=== PATIENT | male | born 1960 | race Caucasian/White ===

== ENCOUNTER → 2020-05-10 | Outpatient (CLI) | payer SELFPAY ==
--- NOTE | 2020-05-10 | IMM_PTH ---
PATIENT: FREYA LIRIANO LOC: [facility] U#:[id number] AGE/SX: 59/M ROOM: RE05/10/[address]: Dr. Jj Guzman MD : 1960 BED: DIS: 05/10/2020 SPEC #: [id number] RECD: 05/14/20 13:56 STATUS: FELIPE REQ #: [id number] ROHAN: 05/10/20 00:[address]: Jj Guzman DEPT: IMMUNOHISTOCHEMISTRY RECD BY: Татьяна Martinez ENTERED: 05/14/20 13:58 SP TYPE: IMMUNO OTHR DR: No Primary Care Phys Tissues: Esophagus, NOS Procedures: MSH2 (add) MLH-1 (add) MSH6 (add) Anti-PMS2 (add) CK20 (add) CK7 (add) CK8 (add) BARBER-2 (add) KI-67 (add) P53 (add) Pankeratin (initial) CDX2 (add) PHYSICIAN & [address] [address] SPECIMEN INFORMATION: Tissue Source: Esophageal biopsy Clinical Info: Anemia, weight loss Specimen Number: [id number] CPT code: 18932, 91215 x11 METHODOLOGY: Deparaffinized sections of prefer/formalin-fixed tissue or PAP/DQ stained slides are incubated with monoclonal/polyclonal antibodies/oligonucleotide probes. Localization is made via biotin free immunoperoxidase method. Appropriate controls are performed and reacted as expected. Results on target cell population are indicated in the following table: RESULTS: ANTIBODY / CLONE RESULT AE1-3 (AE1/AE3/PCK26) positive CK7 (OV-TL12/30) negative CK8 (44urejB17) positive CK20 (KS20.8) positive, focal BARBER-2 (SP21) positive CDX2 (RXG3168Y) positive Ki-67 (30-9) positive, 90% P53 (DO-7) positive, 45% MLH-1 (M1) positive MSH2 (25D12) positive MSH6 (44) positive PMS2 (YAV7372) positive These tests were developed and their performance characteristics determined by [facility]. They may not have been cleared or approved by the U.S. Food and Drug Administration. The FDA has determined that such clearance or approval is not necessary. The above immunohistochemical/dualISH markers are ordered and reviewed by the Pathologist. INTERPRETATION: Esophageal biopsy: Invasive poorly differentiated adenocarcinoma. Result of Microsatellite Instability Study: Negative (no loss of mismatch protein; no microsatellite instability detected). AM:ema 05/15/20
--- NOTE | 2020-05-10 13:03 | EGD_PTH ---
PATIENT: FREYA LIRIANO LOC: [facility] U#:[id number] AGE/SX: 59/M ROOM: RE05/10/[address]: Dr. Jj Guzman MD : 1960 BED: DIS: 05/10/2020 SPEC #: [id number] RECD: 05/10/20 15:13 STATUS: FELIPE ISRAEL #: [id number] ROHAN: 05/10/20 13:[address]: Jj Guzman DEPT: SURGICAL PATHOLOGY RECD BY: Maria Teresa Nelson ENTERED: 05/13/20 07:23 SP TYPE: EGD BIOPSY OT DR: Linda [facility] Tissues: Esophageal mucous membrane Procedures: Special Stain Group II Special Stain Group I Surgery Specimen Level IV GMS Stain (control) Alcian Blue/PAS (control) HEADER OPERATION: EGD with biopsies PRE-OP DIAGNOSIS: Anemia, weight loss TISSUE SUBMITTED: Esophageal biopsies, rule out esophageal CA MICROSCOPIC DIAGNOSIS Esophagus, biopsy: Invasive moderate to poorly differentiated adenocarcinoma. Focal mucosal ulceration. Fungal organisms present. See comment. AM:ema 05/14/20 COMMENT Immunohistochemistry ([id number]) supports the above diagnosis. GMS and AB/PAS stains with matched control was used in the evaluation of this case. MICROSCOPIC DESCRIPTION Slides are reviewed. GROSS DESCRIPTION Received in fixative is one container labeled with the patient's name and designated esophageal biopsy. The specimen consists of multiple irregular fragments of light shetty soft tissue that in aggregate measure 1 x 0.6 x 0.2 cm. The specimen is totally submitted in one cassette. / AM:ema 05/13/20 TC:0 CPT: 80111, 74355, 49851
== END | disposition home or self-care (01) ==
LOC: LABSPEC 15:44
PROVIDERS: Referring Provider Internal Medicine Gastroenterology; Visit Provider Internal Medicine Gastroenterology
DX: D50.0 Iron deficiency anemia secondary to blood loss (chronic) (principal); R63.4 Abnormal weight loss
CPT/HCPCS: 88305; 88312; 88313; 88341; 88342

== ENCOUNTER 2024-03-24 07:34 | Observation (INO) | payer SELFPAY ==
[2024-03-21 14:52] LABS: Hemoglobin 8.4 g/dL (13.0-16.5); Mean Corpuscular Hgb 20.9 pg (27.0-32.0); Mean Corpuscular Volume 74.8 fL (80-94); Mean Platelet Vol. 10.9 fl (6.2-12.0); Platelet Count 340 K/mm3 (150-450); RBC Distribution Width CV 18.8 % (11.6-14.6); RBC Distribution Width SD 51.3 fl (35.1-43.9); Red Blood Count 4.01 M/mm3 (4.6-6.2); White Blood Count 6.8 K/mm3 (4.4-11.0)
[2024-03-21 15:31] LABS: Hemoglobin A1c 7.5 % (3.8-5.6)
[2024-03-21 15:35] LABS: Anion Gap 3 (5-15); BUN 13 mg/dL (7-18); BUN/Creat Ratio 12.1 RATIO (10-20); Chloride 107 mmol/L (98-107); Creatinine, Serum 1.07 mg/dL (0.70-1.30); EST Glomerular Filtration Rate 74 mL/min (>60); Est Glom Filt Rate - Afr Amer 90 mL/min (>60); Glucose 142 mg/dL (74-106); Potassium 3.9 mmol/L (3.5-5.1); Sodium Level 139 mmol/L (136-145)
[2024-03-21 17:32] LABS: International Normalized Ratio 1.6; Prothrombin Time (Protime)PT. 18.6 SECONDS (11.7-14.9)
[2024-03-24] VITALS (12 sets, daily range): BP systolic 115–140; BP diastolic 75–89; PULSE 66–92; RESP 16–18; TEMP 36.2–36.7; O2SAT 92–100; BMI 23.3; BMI 3417.4
[2024-03-24] MEDS: Lactated Ringers 1,000 ML 15 ML IV (06:01)
--- NOTE | 2024-03-24 07:11 | PRE.ANES_ITS ---
ASA Classification* ASA Classification ASA Classification: 3 Assessment & Plan Anesthesia* Anesthesia Assessment Anesthesia Assessment: Discussed sedation and/or anesthesia options, risks, benefits, and alternatives with patient/parents/legal guardian/POA. Questions invited. The patient/parents/legal guardian/POA seems to understand and agrees to proceed with anesthesia plan. Reviewed the physical assessment, medical history, allergy history and patient home medications list prior to surgery/procedure/anesthetic and documented any changes. Performed airway and anesthesia risk assessments. Anesthesia Type Anesthesia Type: General Anesthesia Focused Assessment* Temperature: 97.4 F Pulse Rate: 79 Blood Pressure: 115/79 Respiratory Rate: 16 Pulse Ox: 100 Airway Assessment Mouth opens: >3 cm Mallampati Score: II Focused Labs Anesthesia Preop lab: CBC WBC 6.8 K/mm3 (4.4-11.0) 03/21/24 14:07 RBC 4.01 M/mm3 (4.6-6.2) L 03/21/24 14:07 Hgb 8.4 g/dL (13.0-16.5) L 03/21/24 14:07 Hct 30.0 % (40-54) L 03/21/24 14:07 Plt Count 340 K/mm3 (150-450) 03/21/24 14:07 CHEMISTRY Potassium 3.9 mmol/L (3.5-5.1) 03/21/24 14:07 Sodium 139 mmol/L (136-145) 03/21/24 14:07 BUN 13 mg/dL (7-18) 03/21/24 14:07 Creatinine 1.07 mg/dL (0.70-1.30) 03/21/24 14:07 Glucose 142 mg/dL (74-106) H 03/21/24 14:07 COAG PT 18.6 SECONDS (11.7-14.9) H 03/21/24 14:07 Pre-Assessment Diagnosis/Proposed Procedure Planned Operative Procedure(s): Lap Robotic Simple Prostatectomy Anesthesia History Anesthesia History - social work instructor: Anesthesia History - social work instructor Hx Hospitalization No 03/20/24 11:33 Any Problems With Anesthesia No 03/20/24 11:33 Cholinesterase deficiency No 03/20/24 11:33 You/Your Family Experience No 03/20/24 11:33 fever (hyperthermia) with Relationship Recent Exposure to Contagious No 03/24/24 05:57 Disease Does patient have nerve No 03/20/24 11:33 stimulator Patient instructed to have device shut off --Does patient have Pacemaker No 03/24/24 05:57 or ICD? When Was Last Pacemaker Check QUESTION #4 FULL TEXT: You/Your Family Experience fever (hyperthermia) with Anesthesia Last Oral Intake Last Oral intake: Last Oral Intake NPO since 20:00 03/24/24 05:57 Meds taken in AM with sips of water? Meds patient instructed to take am of surgery PONV PONV - social work instructor: PONV - social work instructor Female No 03/20/24 11:33 HX of Motion Sickness No 03/20/24 11:33 HX of N/V After Surgery No 03/20/24 11:33 Non-Smoker Yes 03/20/24 11:33 Duration of Surgery greater Yes 03/20/24 11:33 than 60 minutes Number of Risk Factors 2 03/20/24 11:33 PONV Score Moderate Risk 03/20/24 11:33 Height & Weight Height & Weight: Anesthesia: Height & Weight Height 6 ft 03/24/24 05:57 Weight: 78.3 kg 03/24/24 05:57 Body Mass Index (BMI) 23.3 03/24/24 05:57 Respiratory Assessment Respiratory Assessment - social work instructor: Respiratory Tract Infection Hx - social work instructor Hx Respiratory Tract Infection No 03/20/24 11:33 STOP Sleep Apnea STOP Sleep Apnea - social work instructor: STOP Sleep Apnea - social work instructor Hx Hypertension No 03/20/24 11:33 Hx Sleep Apnea No 03/20/24 11:33 CPAP BIPAP Do you snore loudly (louder No 03/20/24 11:33 than talking or can be heard Do you often feel tired/ No 03/20/24 11:33 fatigued/ sleepy during daytime? Has anyone observed you stop No 03/20/24 11:33 breathing during sleep? STOP Results Negative 03/20/24 11:33 QUESTION #5 FULL TEXT : Do you snore loudly (louder than talking or can be heard through closed doors)? 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 Specify any problems Hx of Preganancy in last 3 N/A 03/20/24 11:33 Months Nurse Filling Out Transfusion VLEHMAN 03/20/24 11:33 & Questions: Date: 03/20/24 03/20/24 11:33 Time: 11:44 03/20/24 11:33 Patient unable to answer at this time (ie. confused, unrespo /Reproduction History /Reproductive History - social work instructor: /Reproductive Hx- social work instructor Hx Now Gestational Age (in weeks): EDC: Hx Hx Para Hx Section SAB Active Medications Active Medications: Current Medications Generic Name Dose Route Start Last Admin Trade Name Freq PRN Reason Stop Dose Admin Cefazolin Sodium 2 gm/ Sodium 110 mls @ 150 mls/hr 03/24/24 07:30 Chloride IV 03/24/24 08:13 PREOP ONE Lactated Ringer's 1,000 mls @ 15 mls/hr 03/24/24 05:45 03/24/24 06:01 IV 15 mls/hr .Q48H JOHN Administration PFSH Medical History Wears glasses Cancer Anemia History of diverticulitis Non-smoker History of stress test History of esophageal cancer Home Medications ?Medication ?Instructions ?Recorded ?Last Taken ?Type metformin 500 mg tablet 1,000 mg PO QPM 03/20/24 03/23/24 History pantoprazole 40 mg tablet,delayed 40 mg PO BID 03/20/24 03/23/24 History release pembrolizumab 25 mg/mL intravenous IV .Q6W IMMUNOTHERAPY 03/20/24 03/15/24 History solution (Keytruda) tamsulosin 0.4 mg capsule 0.4 mg PO DAILY 03/20/24 03/23/24 History Allergy/AdvReac Type Severity Reaction Status Date / Time No Known Allergies Allergy Verified 03/24/24 05:53 Surgical History History of laparoscopic cholecystectomy History of tonsillectomy History of esophageal surgery Social History Smoking Status: Never smoker Review of Systems (Anesthesia) ROS Narrative System reviewed and no additional complaints, except as documented.
[2024-03-24 07:27] LABS: Bedside Glucose 94 mg/dL (74-106)
[2024-03-24] MEDS: Cefazolin 2 GM in 0.9% Normal Saline (100mL Bag) 100 ML IV (07:30)
--- NOTE | 2024-03-24 07:30 | PROST_PTH ---
PATIENT: FREYA LIRIANO LOC: [facility] U#:[id number] AGE/SX: 63/M ROOM: MI318 RE03/24/[address]: Dr. Ildefonso Tejada MD : 1960 BED: 1 DIS: 03/26/2024 SPEC #: [id number] RECD: 03/24/24 10:55 STATUS: FELIPE WOOD #: [id number] ROHAN: 03/24/24 07:[address]: Ildefonso Tejada DEPT: SURGICAL PATHOLOGY RECD BY: Carolina Vargas ENTERED: 03/24/24 13:20 SP TYPE: PROSTATE OTHR DR: Dr. Frank Valderrama MD Tissues: Prostate, NOS Procedures: Surgery Specimen Level HEADER OPERATION: Laparoscopic robotic simple prostatectomy PRE-OP DIAGNOSIS: Benign prostatic hyperplasia with lower urinary tract symptoms, urine retention TISSUE SUBMITTED: Prostate MICROSCOPIC DIAGNOSIS Prostate, simple prostatectomy: Bening prostatic hyperplasia, glandular and stromal type. Chronic inflammation. SJ/mr 03/27/2024 MICROSCOPIC DESCRIPTION Slides are reviewed. GROSS DESCRIPTION Received in fixative is one container labeled with the patient's name and designated Prostate. The specimen consists of a simple prostatectomy specimen weighing 66.0 gm and measuring 6.0 x 4.5 x 4.0cm. The specimen is inked, serially sectioned and do not reveal any obvious mass lesions. Soil Expert sections are submitted in ten cassettes. 03/24/2024 TC:5 CPT: 03952
--- NOTE | 2024-03-24 07:35 | HP.PCM_ITS ---
[facility] - General General Date of Service: 03/24/24 Chief Complaint: Retention of urine [facility] Narrative FREYA LIRIANO, is a 63 M who presents for a robotic simple prostatectomy as a history of very large prostate by ultrasound measured about 80 g and he has retention of urine he said several voiding trials with failed success is been on medical therapy. Offered him options and recommended a robotic simple prostatectomy and is able to proceed with a robotic simple test ectomy to alleviate the obstruction and hopefully restore normal voiding. [facility], [facility] Medical History Wears glasses Cancer Anemia History of diverticulitis Non-smoker History of stress test History of esophageal cancer Home Medications ?Medication ?Instructions ?Recorded ?Last Taken ?Type metformin 500 mg tablet 1,000 mg PO QPM 03/20/24 03/23/24 History pantoprazole 40 mg tablet,delayed 40 mg PO BID 03/20/24 03/23/24 History release pembrolizumab 25 mg/mL intravenous IV .Q6W IMMUNOTHERAPY 03/20/24 03/15/24 History solution (Keytruda) tamsulosin 0.4 mg capsule 0.4 mg PO DAILY 03/20/24 03/23/24 History ciprofloxacin HCl 500 mg tablet 500 mg PO BID #14 tabs 03/24/24 Unknown Rx (Cipro) oxycodone 5 mg tablet 5 mg PO Q6H PRN pain 3 days #14 03/24/24 Unknown Rx tabs Allergy/AdvReac Type Severity Reaction Status Date / Time No Known Allergies Allergy Verified 03/24/24 05:53 Surgical History History of laparoscopic cholecystectomy History of tonsillectomy History of esophageal surgery Social History Smoking Status: Never smoker Vital Signs Vital Signs Vital Signs: 03/24/24 05:57 03/24/24 05:57 03/24/24 07:11 Temperature 97.4 F L 97.4 F L Temperature Source Temporal Pulse Rate 79 79 Respiratory Rate 16 16 Respiratory Pattern Normal Blood Pressure 115/79 115/79 Blood Pressure Mean 91 Blood Pressure Source Monitor Blood Pressure Position Semi-Fowlers Blood Pressure Location Right Arm Pulse Ox 100 100 Oxygen Delivery Method Room Air Weight Weight: 78.3 kg Body Mass Index (BMI) 23.3 Results Lab / Micro Data 03/21/24 14:07 03/21/24 14:07 Labs: Laboratory Results - last 24 hr 03/24/24 05:56: POC Glucose 94
--- NOTE | 2024-03-24 07:35 | PCM.DC ---
Discharge Instructions Diet Discharge Diet: No restrictions Activity Discharge Activity: Return to Normal Activity and May Not Drive (while taking narcotic pain medications.) Dressing / Incision Call your doctor if you observe: Fever of 101 or Higher Catheter: Perez to leg bag and Perez to large bag Drain: [place] Follow Up Care Please Follow Up With: Ildefonso Tejada MD When: Call [phone] for an appointment Test Results: Test results from this visit will be discussed in further detail at your follow-up appointment, if applicable. Discharge Plan Admission Primary Reason for Your Visit: Simple prostatectomy robotic Attending Provider: Ildefonso Tejada Primary Care Provider: Frank Valderrama Instructions Patient Instructions: TURP Home Recovery Print Language: Somali Discharge Orders/Prescriptions Prescriptions: New ciprofloxacin HCl [Cipro] 500 mg tablet 500 mg PO BID Qty: 14 0RF oxycodone 5 mg tablet 5 mg PO Q6H PRN (Reason: pain) 3 Days Qty: 14 0RF Continued metformin 500 mg tablet 1,000 mg PO QPM tamsulosin 0.4 mg capsule 0.4 mg PO DAILY pantoprazole 40 mg tablet,delayed release (DR/EC) 40 mg PO BID Keytruda 25 mg/mL solution IV .Q6W Patient Comments: UNSURE OF DOSE Referrals / Follow Up: Ildefonso Tejada MD [Med Staff - Active Staff] - Care Physician,No Primary [Non-Staff] - Disposition Disposition (needs filled in before D/C Order can be placed): Home, Self Care
[2024-03-24] MEDS: Bupivacaine Mpf 0.5% 30 ML VIAL (09:35)
--- NOTE | 2024-03-24 09:37 | OP.PCM_ITS ---
Report of Operation Date of Procedure: 03/24/24 Pre-Operative Diagnosis: BPH with obstruction retention of urine Post-Operative Diagnosis: The same Surgery/Procedure Performed:: Laparoscopic robotic assisted simple prostatectomy Description of Surgical Findings:: 63-year-old male with very large prostate plan to proceed with a simple prostatectomy robotically. He was taken back to the operating room after smooth induction of anesthesia he was placed in dorsolithotomy position. The penis and testicles were prepped and draped in usual sterile fashion and also the lower abdomen we inspected the lower abdomen he had several port sites and also an incision site from her prior esophageal surgery and was also done robotically in the past. So once the patient was prepped and draped I decided to make an incision below the umbilicus to approach the prostate somewhat subumbilical. Placed a Veress needle into the peritoneal cavity and filled the peritoneal cavity with CO2 gas I then looked inside the abdomen and there was adhesions of small bowel up into into the anterior abdominal wall but this was posterior to me and did not have a block to the site viewed to the bladder and prostate so I left these adhesions alone I then safely placed right arm trocar left arm trocar and an air seal port there was some some adhesions next to the air seal port these were taken down so there was a free access to the stylist assistant surgeon. We then docked the da Syed robot we using an X I robot and we used a 0 degree lens. Once the robot was docked then we placed the scissors in my right arm and ProGrasp in the my left arm for stated reflected the colon off the lateral sidewall incising the white line of Toldt on the sigmoid colon this was able to then to dissected out of the way so that a lot of free access to the pelvis and the bladder was then filled with about 200 cc of normal saline and then a incision was made in the midline of the bladder. I then opened up the bladder in the midline and got inside the bladder we sucked out the urine and fluid from the bladder I then extended the incision so that we could retract the bladder edges with the suction port and the robotic ProGrasp we then approached the prostate I scored the prostate circumferentially around the urethra to score the mucosa of the prostate to save his mucosa lateral to flap down to the urethra for reconstruction I then found the enucleation plane between the adenoma and the prostate edge found this first posteriorly and then once we went got underneath the adenoma dissected underneath the adenoma as far as inferiorly as possible all the way down to the apex of the prostate I then started working my way up on the right side and the adenoma tracing the adenoma and peeling the adenoma off the capsule the prostate the way there was a nice pseudocapsule around this large adenoma about an 80 g adenoma as I followed this to the anterior part then we came to the muscle fibers of the anterior part of the adenoma adhesions between the adenoma in the anterior part and then we went to the back down to the posterior part of the adenoma and worked our way to the lateral side again dissecting bluntly and sharply to reflect the adenoma off the lateral wall of the prostate capsule away working away all the way anterior we then we came through the adenoma anteriorly and then started pulling the end of the adenoma towards us we are using suction to able to visualize and as we came towards the apex I left the catheter in place so that we could follow the catheter and then we identified the urethral strip the anterior part of the urethral strip was then opened up and then it continued to dissect the adenoma off the urethral strip and then I was able to dissect the adenoma off the apex of the prostate then the adenoma came free and it was pulled and free we deflated the balloon and pulled out the catheter from the adenoma and the complete adenoma left and right was removed completely from the prostate. We then inspected the prostate base and there was no major bleeding we cauterize any sites that look like they could bleed. We irrigate out the bladder and irrigate the base of the pelvis. I then proceeded with reconstruction of the bladder neck to the urethra we used a 3 oh V-Loc stitch in a continuous fashion running from the 6:00 to the 12:00 advancing the mucosa all the way around to the urethral stump circumferentially after this was completed then there was a nice reapproximation of the mucosa to the urethral stump and advancing the urethra to complete the reapproximation of the bladder mucosa to the new urethral stump. Then at this point we inspected and there was no bleeding from the area 20 Vietnamese catheter was put into the urethra with 10 cc of water in the balloon we then proceeded with closure of the bladder close the first layer with a 2 oh V-Loc stitch and closed the second layer with an 0 Vicryl stitch these were tied together then we tested the anastomosis and closure filled the bladder up with 200 cc of sterile saline and there was no leakage. We then the using Endo Catch bag to place the adenoma inside the bag and then we undocked the robot the lower umbilical port was opened up and we extracted the large adenoma through that low remove the local port and then we closed the fascia with 0 Vicryl suture 2 [id number] sutures were used to close this. We then reinsufflated the abdomen and inspected the abdomen there was no sign of injury to any bowel intestines there was still the adhesions of the anterior small bowel to the anterior part of the abdomen but this is left alone as this is the way it was found and I felt like dissecting this down could be extremely dangerous for bowel injury given how it adhesions anterior small bowel was to the anterior wall of the abdomen. We then closed the [address] port with Vicryl suture 0 Vicryl this was done under direct visualization and then this port was removed and then we remove the 2 of the ports desufflated the abdomen. We then closed all the incisions with subcuticular stitches there was a 1 incision in the lower left abdomen midline incision lower below the umbilicus a incision in the right lower quadrant and then the air seal port that was in the right upper quadrant after all 4 incisions were closed with subcuticular stitches and 4-0 Monocryl then we placed Steri-Strips. I then irrigated the bladder copiously to make sure there is no clots and it was draining well. The anesthetic was reversed the patient was extubated he was taken off the table and transferred to the PACU in safe condition. Surgeon: Ildefonso Tejada Type of Anesthesia: General Drains: 20 Fr Admit VTE Documentation VTE Present on Admission: No VTE Mechan Device Prophylaxis: SCD's VTE Pharm Prophylaxis ordered?: No
--- NOTE | 2024-03-24 10:33 | SUR.PHASEI ---
1000 20 FR CATHETER IRRIGATED USING 30 ML STERILE WATER AND 50ML SYRINGE. 1 BLOOD CLOT REMOVED.
--- NOTE | 2024-03-24 10:38 | PCM.POST.ANE ---
Anesthesia: Postop Eval I Current Vital Signs Temperature: 97.3 F Pulse Rate: 92 Blood Pressure: 140/89 Respiratory Rate: 16 Pulse Ox: 94 Oxygen Delivery Method: Room Air Assessment Airway patent: Yes Spontaneous unlabored respirations: Yes Mental status: Awake and Calm nausea: No Vomiting: No Anesthesia Complication: No Fluid Hydration Crystalloid volume administer (ml): 1,200 Total IV fluid infused: 1,200 Progress Note Anesthesia document: Postop Eval 1 completed: Yes
[2024-03-24] MEDS: 0.9% Normal Saline (1000mL) 1,000 ML 150 ML IV ×3 (11:15→22:08)
[2024-03-24] MEDS: Ketorolac 15 MG/ML Vial IV (11:22)
[2024-03-24] MEDS: Morphine 2 MG/ML Syringe IV (11:22)
[2024-03-24] MEDS: Acetaminophen 325 MG Tablet PO (11:23)
--- NOTE | 2024-03-24 12:47 | POSTOPAN2_ITS ---
Anesthesia Postop Eval I Sum Postop Eval Completion status Anesthesia document: Postop Eval 1 completed: Yes Anesthesia Postop Eval I Summary Anesthesia Postop Eval I Summary: Anesthesia Postop Eval I: Assessment Summary Airway patent Yes 03/24/24 10:39 [email or web address] Spontaneous unlabored Yes 03/24/24 10:39 [email or web address] respirations Mental status Awake,Calm 03/24/24 10:39 [email or web address] nausea No 03/24/24 10:39 [email or web address] Vomiting No 03/24/24 10:39 [email or web address] Anesthesia Postop Eval I: Fluid Summary Crystalloid volume administer 1,200 03/24/24 10:39 [email or web address] (ml) Colloids volume administered ( ml) Blood Product volume administered (ml) Total IV fluid infused 1,200 03/24/24 10:39 [email or web address] Anesthesia Postop Eval I: Summary Notes Anesthesia Complication No 03/24/24 10:39 [email or web address] Anesthesia Complication Comment: Post-operative progress note Anesthesia: Postop Eval II Evaluation Mental status: Awake Pain Level: 0 nausea: No Vomiting: No
--- NOTE | 2024-03-24 12:47 | PCM.POSTANE2 ---
Anesthesia Postop Eval I Sum Postop Eval Completion status Anesthesia document: Postop Eval 1 completed: Yes Anesthesia Postop Eval I Summary Anesthesia Postop Eval I Summary: Anesthesia Postop Eval I: Assessment Summary Airway patent Yes 03/24/24 10:39 [email or web address].[email or web address] Spontaneous unlabored Yes 03/24/24 10:39 [employer].MDOT respirations Mental status Awake,Calm 03/24/24 10:39 [employer].MDOT nausea No 03/24/24 10:39 [employer].MDOT Vomiting No 03/24/24 10:39 [email or web address].MDOT Anesthesia Postop Eval I: Fluid Summary Crystalloid volume administer 1,200 03/24/24 10:39 [employer].MDOT (ml) Colloids volume administered ( ml) Blood Product volume administered (ml) Total IV fluid infused 1,200 03/24/24 10:39 [email or web address].MDOT Anesthesia Postop Eval I: Summary Notes Anesthesia Complication No 03/24/24 10:39 [email or web address].MDOT Anesthesia Complication Comment: Post-operative progress note Anesthesia: Postop Eval II Evaluation Mental status: Awake Pain Level: 0 nausea: No Vomiting: No
[2024-03-24] MEDS: oxyCODONE 5 MG Tablet PO ×2 (15:38→22:09)
[2024-03-24] MEDS: Cefazolin 1 GM/50 ML BAG IV ×2 (15:39→22:08)
[2024-03-24] MEDS: metFORMIN HCl 1,000 MG Tablet 1000 MG PO (15:39)
[2024-03-24] MEDS: Tamsulosin HCl 0.4 MG Capsule PO (15:40)
[2024-03-24] MEDS: Pantoprazole Sodium 40 MG Tablet PO (15:40)
[2024-03-24] MEDS: Docusate Sodium 100 MG Capsule 200 MG PO (22:09)
[2024-03-25 03:10] VITALS: BP 108/71; PULSE 86; RESP 16; TEMP 36.6; O2SAT 96
[2024-03-25] MEDS: 0.9% Normal Saline (1000mL) 1,000 ML 150 ML IV (05:11)
--- NOTE | 2024-03-25 07:44 | PCM.PN.GU ---
Subjective Subjective s/p simple prostatectomy urine still slighly blooding but clear heplock out of bed, ambulate maybe home tomorrow sol to leg bag Objective Data Objective Data Vital Signs: Vital Signs Temp Pulse Resp BP Pulse Ox O2 Del Method 98 F 86 16 108/71 96 Room Air 03/25/24 03:10 03/25/24 03:10 03/25/24 03:10 03/25/24 03:10 03/25/24 03:10 03/25/24 03:10 Oxygen Delivery Method Room Air Weight: 79.379 kg Body Mass Index (BMI) 3417.4 Intake & Output: Intake and Output for Last 24 Hours 03/23/24 03/24/24 03/25/24 23:59 23:59 23:59 Intake Total 2115.75 / 2115.75 965 / 965 Output Total 350 / 350 Balance 1765.75 / 1765.75 965 / 965 Lab / Micro Data 03/21/24 14:07 03/21/24 14:07
[2024-03-25 08:08] VITALS: BP 110/71; PULSE 82; RESP 16; TEMP 36.8; O2SAT 95
[2024-03-25] MEDS: Docusate Sodium 100 MG Capsule 200 MG PO ×2 (08:30→22:15)
[2024-03-25] MEDS: oxyCODONE 5 MG Tablet PO ×2 (08:31→16:08)
[2024-03-25] MEDS: Pantoprazole Sodium 40 MG Tablet PO ×2 (08:31→22:15)
[2024-03-25 11:03] VITALS: O2SAT 95
[2024-03-25] MEDS: Ketorolac 15 MG/ML Vial IV ×2 (11:32→19:09)
[2024-03-25 14:22] VITALS: BP 90/53; PULSE 87; RESP 16; TEMP 36.7; O2SAT 98
[2024-03-25 16:03] VITALS: BP 101/65; PULSE 77; RESP 16; TEMP 36.8; O2SAT 97
[2024-03-25] MEDS: metFORMIN HCl 1,000 MG Tablet 1000 MG PO (16:09)
[2024-03-25] MEDS: Tamsulosin HCl 0.4 MG Capsule PO (16:10)
[2024-03-25 20:30] VITALS: BP 121/71; PULSE 91; RESP 16; TEMP 37.3; O2SAT 98
[2024-03-26] MEDS: Ketorolac 15 MG/ML Vial IV ×3 (00:33→11:26)
[2024-03-26 02:58] VITALS: BP 115/74; PULSE 96; RESP 16; TEMP 36.9; O2SAT 97
[2024-03-26 08:56] VITALS: BP 121/81; PULSE 76; RESP 18; TEMP 36.9; O2SAT 97
[2024-03-26] MEDS: Docusate Sodium 100 MG Capsule 200 MG PO (09:01)
[2024-03-26] MEDS: Pantoprazole Sodium 40 MG Tablet PO (09:02)
--- NOTE | 2024-03-26 09:54 | PCM.PN.GU ---
Subjective Subjective 63 yo male s/p simple prostatectomy home today with sol to leg bag. Objective Data Objective Data Vital Signs: Vital Signs Temp Pulse Resp BP Pulse Ox O2 Del Method 98.5 F 76 18 121/81 H 97 Room Air 03/26/24 08:56 03/26/24 08:56 03/26/24 08:56 03/26/24 08:56 03/26/24 08:56 03/26/24 08:56 Oxygen Delivery Method Room Air Weight: 79.379 kg Body Mass Index (BMI) 3417.4 Intake & Output: Intake and Output for Last 24 Hours 03/24/24 03/25/24 03/26/24 23:59 23:59 23:59 Intake Total 2115.75 / 2115.75 2279.5 / 2279.5 400 / 400 Output Total 350 / 350 250 / 250 780 / 780 Balance 1765.75 / 1765.75 2029.5 / 2029.5 -380 / -380 Lab / Micro Data 03/21/24 14:07 03/21/24 14:07
[2024-03-26 11:29] VITALS: O2SAT 97
[2024-03-26] MEDS: 0.9 % NaCl (Sterile) Posiflush 10 mL IV (11:29)
== END 2024-03-26 12:11 | disposition home or self-care (01) ==
LOC: SDC 09:17 → MS3 09:17
PROVIDERS: Anesthesiology; Admitting Provider Urology; PCP Family Medicine; Referring Provider Urology; Visit Provider Urology
PROC: 0VT04ZZ Resection of Prostate, Percutaneous Endoscopic Approach (ICD-10-PCS; CPT 55867; principal; 2024-03-24 07:10)
DX: N40.1 Benign prostatic hyperplasia with lower urinary tract symptoms (principal); E11.9 Type 2 diabetes mellitus without complications; N13.8 Other obstructive and reflux uropathy; R33.8 Other retention of urine; I45.10 Unspecified right bundle-branch block; I10 Essential (primary) hypertension; Z79.899 Other long term (current) drug therapy; Z85.01 Personal history of malignant neoplasm of esophagus; Z87.19 Personal history of other diseases of the digestive system
CPT/HCPCS: 55867; 00840; 36415; 80048; 82962; 83036; 85027; 85610; 85730; 88309; 93005; 94668; 96361; 96365; 96366; 96372; 96375; 96376; 99221; J7030; J7120; G0378; J2405

== ENCOUNTER 2024-06-20 11:06 | Inpatient (IN) | payer OTHER, SELFPAY ==
[2024-06-20] VITALS (8 sets, daily range): BP systolic 131–157; BP diastolic 75–96; PULSE 67–83; RESP 14–18; TEMP 36.6–36.7; O2SAT 97–99; BMI 24.3; BMI 22.6
--- NOTE | 2024-06-20 11:26 | CT_ITS ---
HISTORY: Kidney Stone. TECHNIQUE: Helically acquired images were obtained of the abdomen and pelvis without oral or IV contrast. A radiation dose optimization technique was used for this scan. 399 images. COMPARISON: None. FINDINGS: LOWER CHEST: Moderate right pleural effusion. Mild loculated left pleural effusion with mild pleural thickening. Bilateral lower lobe opacity calcified granulomas also noted. Mild pericardial effusion with pericardial thickening. BOWEL: Distal esophageal wall thickening and mild hiatal hernia with adjacent suture. Bowel including appendix nondilated. Colonic diverticulosis without focal pericolonic inflammatory change. PERITONEUM: Mild perihepatic ascites. No mesenteric edema. LIVER SPLEEN: Calcified granulomas. GALLBLADDER/BILIARY TREE: Surgical clips in the gallbladder fossa. PANCREAS: Atrophic. ADRENAL GLANDS: 1.9 cm indeterminate left adrenal nodule. KIDNEYS AND URETERS: Mild left hydronephrosis and hydroureter down to the level of 6 mm and 2 mm ureterovesical junction calculi. 7 mm calculus just distal to the left ureterovesical junction also seen. One-2 mm right renal Silva without hydronephrosis. VESSELS: No abdominal aortic aneurysm. Mild atherosclerosis. PELVIC ORGANS: 1 mm left bladder calculus ABDOMINAL WALL: Mild subcutaneous edema. BONES: Degenerative change scattered small bone islands. CT/Abdomen/Pelvis without Cont IMPRESSION: Mild left hydronephrosis secondary to 6 mm, 2 mm, and 7 mm UVJ calculi. Small left bladder calculus. Small nonobstructing right renal calculi. Anasarca with moderate right pleural effusion, loculated mild left pleural effusion, and loculated mild pericardial effusion; infection not excluded. Mild ascites. Gastroesophageal postoperative change with mild wall thickening of the distal esophagus and mild hiatal hernia. Colonic diverticulosis without acute diverticulitis. 1.9 cm left adrenal nodule. ACR White Paper guidelines (Jaycob et al. JACR 2017; 14(8):0067-0889) suggest the following. If there is no history of malignancy consider a follow-up low dose, non-contrast adrenal CT or chemical-shift adrenal MRI in 12 months. If there is a history of malignancy recommend a low dose, non-emergent, non-contrast adrenal CT or chemical-shift adrenal MRI follow-up study. Electronically Signed: Charu Luke MD at 12:44 EST ,
--- NOTE | 2024-06-20 11:28 | EX.ED.DYSGE1 ---
HPI History of Present Illness Chief Complaint: Flank Pain Informant: patient Narrative Narrative: Nontraumatic left flank pain started this morning. No radicular symptoms. No fever or chills. Over the weekend, reported slight urine discomfort at the end of urination. No nausea or vomiting. History of kidney stones in the past with no intervention he is followed by urologist Dr. Tejada. Also history of esophageal cancer immunotherapy every 6 weeks last treatment 2 weeks ago. He took a leftover oxycodone 8 AM with no relief. Denies history gastric ulcers or kidney injury. Prior similar symptoms: Yes PFSH [facility] Medical History (Updated 06/20/24 @ 15:[address] Parviz Baptiste DO) Diabetes Chronic pain Kidney stones GERD (gastroesophageal reflux disease) Wears glasses Cancer Anemia History of diverticulitis Non-smoker History of stress test History of esophageal cancer Home Medications ?Medication ?Instructions ?Recorded ?Last Taken ?Type metformin 500 mg tablet 1,000 mg PO QPM 03/20/24 06/19/24 History pantoprazole 40 mg tablet,delayed 40 mg PO BID 03/20/24 06/19/24 History release pembrolizumab 25 mg/mL intravenous IV .Q6W IMMUNOTHERAPY 03/20/24 06/09/24 History solution (Keytruda) tamsulosin 0.4 mg capsule 0.4 mg PO DAILY 03/20/24 06/19/24 History ferrous sulfate 325 mg (65 mg 325 mg PO DAILY 06/20/24 06/19/24 History iron) tablet iron dextran 50 mg/mL injection 50 mg IM .1x 06/20/24 06/16/24 History solution (Infed) Allergy/AdvReac Type Severity Reaction Status Date / Time No Known Allergies Allergy Verified 06/20/24 11:07 Surgical History History of laparoscopic cholecystectomy History of tonsillectomy History of esophageal surgery Social History Smoking Status: Never smoker ROS ROS ED Constitutional Constitutional ED: Denies chills, fever(s) or sweats Eyes Eyes: Denies change in vision ENT ENT ED: Denies dysphagia or sore throat Cardiovascular Cardiovascular: Denies chest pain, leg edema, palpitations or racing heartbeat Respiratory/Chest Respiratory/Chest: Denies cough, dyspnea or dyspnea on exertion Gastrointestinal Gastrointestinal: Denies abdominal pain, diarrhea, nausea or vomiting Genitourinary Genitourinary ED: Denies dysuria, hematuria or urinary frequency Musculoskeletal Musculoskeletal: Reports back pain; Denies extremity pain or neck pain Integumentary Denies rash or wounds Neurologic Neurologic: Denies headache(s), paresthesias or weakness EXAM Physical Exam Const Vital Signs: 06/20/24 11:06 06/20/24 13:05 06/20/24 13:42 Temperature 97.8 F 98.1 F Temperature Source Oral Pulse Rate 67 83 79 Respiratory Rate 16 14 16 Blood Pressure 157/96 H 144/87 H 147/83 H Blood Pressure Mean 116 106 104 Pulse Ox 98 98 97 Oxygen Delivery Method Room Air Positive well nourished and well developed General Appearance ED: well developed and NAD HEENT Reports moist mucous membranes normocephalic and atraumatic Eyes EOMs intact bilaterally and conjunctivae normal General Eye ED: Yes normal appearance of both eyes Neck no lymphadenopathy and supple General: Negative for tenderness Chest Wall Chest: Negative for tenderness Resp normal respiratory effort and normal air movement Effort and Inspection: symmetric chest movement; Negative for respiratory distress Cardio regular rate, regular rhythm and no murmurs Peripheral Pulses: pulses 2+ throughout GI normal to inspection, nondistended, normoactive bowel sounds and non-tender Palpation: Negative for guarding or rebound tenderness present Back/Spine no CVA tenderness and no thoracic nor lumbar tenderness Back/Spine Narrative: No rash or ecchymosis. Extremity normal to inspection General Extremety ED: Negative for edema or tenderness General Extremity: Negative for edema Neuro oriented x3 and no sensory deficits noted Sensorium / Orientation: awake and alert Skin no rashes or lesions noted and no wounds MDM MDM MDM Narrative Medical decision making narrative: Interventions / MDM: Differential diagnosis: Obstructive kidney stone, UTI, renal colic, history of esophageal cancer, immunotherapy Diagnosis considered but do not suspect: No sepsis criteria My EKG interpretation: N/A Imaging independently reviewed and interpreted by myself: CT abdomen pelvis: Discharge ureteral stone UVJ of 6 mm, 7 mm, 2 mm with moderate hydro-. Right pleural effusion. Also read by radiology. External documents reviewed: N/A Test considered but not ordered:N/A ED course: Left flank pain similar to kidney stones in the past. Nontoxic. IV established medications ordered, labs urine and CT scan for further evaluation. 1225: Symptoms are controlled at this time. Creatinine 0.91. White count 7.1. Urine does note signs of infection with leukocytes esterase and 10-25 WBCs. He has 2+ bacteria. Urine culture sent. He started on Rocephin. CT scan pending final read however notes left-sided hydro nephrosis with a distal ureteral stone. Hemoglobin 8.2 stable from his previous lab. 1330: CT scan read multiple stones distal left ureter at UVJ of 7 mm, 6 mm, 2 mm. Also notes right pleural effusion. He is not in any respiratory distress or hypoxic. He reports thoracentesis 2 years ago. Likely secondary to his history of esophageal cancer. I spoke with his urologist Dr. Tejada, he would like to keep him n.p.o., with his medical history request admission to medicine, he will plan to place a stent tomorrow. I will page hospitalist for discussion. Discussed with hospitalist Dr. Elaine for admission. Re-evaluation: stable Disposition discussed with patient/family/significant other: Patient Case discussed with consulting clinician: Urology, hospitalist This note was generated with [employer] dictation software. It may contain incorrect words, spelling, and punctuation that were not noted in checking the note before signing. Lab Data Attestation: I reviewed the patient's lab results. Labs: Laboratory Results - last 24 hr 06/20/24 06/20/24 11:14 11:50 WBC 7.1 RBC 3.76 L Hgb 8.2 L Hct 28.2 L MCV 75.0 L MCH 21.8 L MCHC 29.1 L RDW Std Deviation 54.4 H RDW Coeff of Domonique 21.6 H Plt Count 254 MPV 10.9 Immature Gran % (Auto) 1.300 H Neut % (Auto) 77.1 H Lymph % (Auto) 9.3 L [place] % (Auto) 8.6 Eos % (Auto) 3.1 Baso % (Auto) 0.6 Absolute Neuts (auto) 5.5 Absolute Lymphs (auto) 0.66 L Nucleated RBC % 0 Differential Comment SCANNED Platelet Estimate ADEQUATE Polychromasia 1+ Hypochromasia 2+ Anisocytosis 3+ Macrocytosis 1+ Tear Drop Cells 1+ Ovalocytes 2+ Acanthocytes (Spur) 1+ Sodium 142 Potassium 3.3 L Chloride 110 H Carbon Dioxide 26.0 Anion Gap 6 BUN 9 Creatinine 0.91 Estim Creat Clear Calc 91.20 Est GFR (MDRD) Af Amer 108 Est GFR (MDRD) Non-Af 89 BUN/Creatinine Ratio 9.8 L Glucose 148 H Calcium 8.6 Phosphorus 3.2 Magnesium 1.8 Urine Color Yellow Urine Clarity Clear Urine pH 6.0 Ur Specific [place] 1.020 Urine Protein 100 H Urine Glucose (UA) Normal Urine Ketones Negative Urine Occult Blood 25 H Urine Nitrite Negative Urine Bilirubin Negative Urine Urobilinogen Normal Ur Leukocyte Esterase 25 H Urine RBC 5-10 SEEN Urine WBC 10-25 SEEN Ur Squamous Epith Cells 0-5 SEEN Ur Transition Epith Cell 0-5 SEEN Urine Bacteria 2+ Urine Mucus 1+ Radiography Diagnostic Testing: Clinical Impression(s) from Imaging Studies Abdomen/Pelvis CT 06/20/24 11:26 IMPRESSION: Mild left hydronephrosis secondary to 6 mm, 2 mm, and 7 mm UVJ calculi. Small left bladder calculus. Small nonobstructing right renal calculi. Anasarca with moderate right pleural effusion, loculated mild left pleural effusion, and loculated mild pericardial effusion; infection not excluded. Mild ascites. Gastroesophageal postoperative change with mild wall thickening of the distal esophagus and mild hiatal hernia. Colonic diverticulosis without acute diverticulitis. 1.9 cm left adrenal nodule. ACR White Paper guidelines (storm Devries al. JACR 2017; 14(8):1175-4668) suggest the following. If there is no history of malignancy consider a follow-up low dose, non-contrast adrenal CT or chemical-shift adrenal MRI in 12 months. If there is a history of malignancy recommend a low dose, non-emergent, non-contrast adrenal CT or chemical-shift adrenal MRI follow-up study. Electronically Signed: Charu Luke MD at 12:44 EST , Discharge Plan Dx/Rx/DC Orders Clinical Impression: Urolithiasis, Acute UTI, Pleural effusion, right, History of esophageal cancer, History of immunotherapy, Anemia Disposition Disposition: [facility]
[2024-06-20] MEDS: Ondansetron 4 MG/2 ML Vial IV (11:42)
[2024-06-20] MEDS: Ketorolac 15 MG/ML Vial IV (11:42)
[2024-06-20 11:43] LABS: Color, Urine Yellow (Yellow); Glucose, Dipstick Normal (Normal); Ketone-Dipstick Negative (Negative); Leukocyte Esterase-Dipstick 25 /ul (Negative); Nitrite-Dipstick Negative (Negative); Occult Blood-Urine 25 /ul (Negative); Protein-Dipstick 100 mg/dl (Negative); Urine Bilirubin Dipstick Negative (Negative); Urine Clarity Clear (Clear); Urine Urobilinogen Normal (Normal)
[2024-06-20] MEDS: Morphine 4 MG/ML Syringe IV (11:43)
[2024-06-20 11:50] LABS: Squamous Epithelial Cells - UA 0-5 SEEN /hpf (0-5); White Blood Cells 10-25 SEEN /hpf (0-5)
[2024-06-20 11:51] LABS: Bacteria 2+ /hpf (None Seen); Mucous, Urine 1+ /hpf (<or=2+); Red Blood Cells-Urine 5-10 SEEN /hpf (0-5); Transitional Epithelial - Ur 0-5 SEEN /hpf (0-5)
[2024-06-20 11:54] LABS: Absolute Lymphocyte Count 0.66 X10^3/uL (0.83-4.51); Absolute Neutrophil Count 5.5 X10^3/uL (2.0-7.7); Basophil# 0.04 X10^3/uL; Basophil% 0.6 % (0-1); Eosinophil# 0.22 X10^3/uL; Eosinophils% 3.1 % (0-5); Hematocrit 28.2 % (40-54); Hemoglobin 8.2 g/dL (13.0-16.5); Lymphocyte # 0.66 X10^3/ul (0.83-4.51); Lymphocyte % 9.3 % (19-41); Mean Corp Hgb Conc 29.1 g/dL (32-36); Mean Corpuscular Hgb 21.8 pg (27.0-32.0); Mean Platelet Vol. 10.9 fl (6.2-12.0); Monocyte# 0.61 X10^3/uL; Monocyte% 8.6 % (0-10); NRBC Flagged by Analyzer 0 % (0-5); Neutrophil # 5.49 X10^3/uL (2.7-7.7); Neutrophil % 77.1 % (47-70); POSITIVE MORPHOLOGY YES; Platelet Count 254 K/mm3 (150-450); RBC Distribution Width CV 21.6 % (11.6-14.6); RBC Distribution Width SD 54.4 fl (35.1-43.9); Red Blood Count 3.76 M/mm3 (4.6-6.2); White Blood Count 7.1 K/mm3 (4.4-11.0)
[2024-06-20 12:01] LABS: Differential Indicated SCAN CRITERIA MET
[2024-06-20 12:07] LABS: Anion Gap 6 (5-15); BUN 9 mg/dL (7-18); BUN/Creat Ratio 9.8 RATIO (10-20); Calcium,Total 8.6 mg/dL (8.5-10.1); Chloride 110 mmol/L (98-107); Creatinine, Serum 0.91 mg/dL (0.70-1.30); EST Glomerular Filtration Rate 89 mL/min (>60); Est Glom Filt Rate - Afr Amer 108 mL/min (>60); Glucose 148 mg/dL (74-106); Potassium 3.3 mmol/L (3.5-5.1); Sodium Level 142 mmol/L (136-145)
[2024-06-20] MEDS: Ceftriaxone 1 GM/50 ML BAG IV (12:31)
[2024-06-20 12:57] LABS: Differential Comment SCANNED
[2024-06-20 12:58] LABS: Acanthocytes 1+; Anisocytosis 3+; Hypochromasia 2+; Macrocytosis 1+; Ovalocyte 2+; Platelet Estimate ADEQUATE (ADEQ); Polychromasia 1+
[2024-06-20 12:59] LABS: Tear Drop Cell 1+
--- NOTE | 2024-06-20 13:57 | HP.PCM.HOS_ITS ---
HPI - General General Date of Admission: 06/20/24 Date of Service: 06/20/24 Chief Complaint: Left-sided flank pain HPI Narrative FREYA LIRIANO, is a 64 M who presented to [facility] ED on 06/20/2024 with left-sided flank pain. CT abdomen pelvis showed mild left hydronephrosis secondary to 2, 6, and 7 mm UVJ calculi. Case was discussed with Dr. Tejada in the ED who recommended admission to medicine with plan for procedure tomorrow. Hospitalist was then contacted for admission. I saw the patient at bedside in the ED. Patient follows with Dr. Tejada. He had a simple prostatectomy done by Dr. Tejada here on 03/24/24 for BPH with outlet obstruction. Patient has had a history of small kidney stones that passed on their own, has never required any procedure for them. Patient began to have pain with urination starting 2 days ago and then developed left-sided lower abdominal and flank pain starting this morning. He was given doses of IV Toradol, morphine and Zofran with good relief of symptoms. When I saw him, he was sitting up comfortably in bed, conversing normally, in no acute distress. He denied any issues at this time. Will be admitted for further management. Importantly, patient's history is significant for esophageal cancer and he follows with [facility] for this. I unfortunately was not able to find a good summary of his care through [facility] and did place a request for records. Cancer history was obtained from patient today. Patient states he was diagnosed with cancer back in 2019. States the cancer was right at the GE junction. He completed chemotherapy and radiation initially. He then underwent a surgical procedure to remove that area of the esophagus back in 2020. He has now been on Keytruda every 6 weeks for the past few years. He is aware of his left adrenal nodule that is concerning for cancer metastases and this is being followed by his oncologist. He has had pleural effusions in the past that required thoracentesis. On admission today patient is hemodynamically stable on room air. His CT abdomen pelvis did show anasarca with moderate right pleural effusion, loculated mild left pleural effusion, loculated mild pericardial effusion and mild ascites. Patient denies any shortness of breath with exertion. Denies any abdominal bloating or distention. Notably he can eat a regular diet. States that he eats normal foods but eats only small amounts of food at a time due to his previous surgery. [facility] Medical History Wears glasses Cancer Anemia History of diverticulitis Non-smoker History of stress test History of esophageal cancer Home Medications ?Medication ?Instructions ?Recorded ?Last Taken ?Type metformin 500 mg tablet 1,000 mg PO QPM 03/20/24 06/19/24 History pantoprazole 40 mg tablet,delayed 40 mg PO BID 03/20/24 06/19/24 History release pembrolizumab 25 mg/mL intravenous IV .Q6W IMMUNOTHERAPY 03/20/24 06/09/24 History solution (Keytruda) tamsulosin 0.4 mg capsule 0.4 mg PO DAILY 03/20/24 06/19/24 History ferrous sulfate 325 mg (65 mg 325 mg PO DAILY 06/20/24 06/19/24 History iron) tablet iron dextran 50 mg/mL injection 50 mg IM .1x 06/20/24 06/16/24 History solution (Infed) Allergy/AdvReac Type Severity Reaction Status Date / Time No Known Allergies Allergy Verified 06/20/24 11:07 Surgical History History of laparoscopic cholecystectomy History of tonsillectomy History of esophageal surgery Social History Smoking Status: Never smoker ROS Constitutional Constitutional: Denies chills, fatigue, fever(s) or weakness Cardiovascular Cardiovascular: Denies chest pain Respiratory/Chest Respiratory/Chest: Denies shortness of breath at rest Gastrointestinal Gastrointestinal: Reports abdominal pain and nausea; Denies constipation, diarrhea or vomiting Genitourinary Genitourinary: Reports dysuria and other Details: Positive for left-sided flank pain. ; Denies burning urination, difficulty urinating, urinary frequency or urinary urgency Musculoskeletal Musculoskeletal: Reports myalgias; Denies arthralgias Vital Signs Vital Signs Vital Signs: 06/20/24 11:06 06/20/24 13:05 06/20/24 13:42 Temperature 97.8 F 98.1 F Temperature Source Oral Pulse Rate 67 83 79 Respiratory Rate 16 14 16 Blood Pressure 157/96 H 144/87 H 147/83 H Blood Pressure Mean 116 106 104 Pulse Ox 98 98 97 Oxygen Delivery Method Room Air Weight Weight: 81.448 kg Body Mass Index (BMI) 24.3 Physical Exam Const alert, oriented x3, no apparent distress, average body habitus, healthy appearing and well nourished Constitutional Narrative: Pleasant middle-age male, sitting up comfortably in bed, conversing normally, in no acute distress. General Appearance: cooperative, comfortable, well kempt and well developed HEENT normocephalic, head/scalp atraumatic, hearing grossly normal bilaterally, nasal mucous membranes and turbinates normal and moist oral mucous membranes Eyes PERRL, EOMs intact bilaterally and conjunctivae normal Neck full ROM Chest inspection of chest normal Resp normal respiratory effort, normal air movement, no use of accessory muscles and clear to auscultation bilaterally Cardio regular rate, regular rhythm, no murmurs and peripheral pulses 2+ throughout GI normal to inspection, nondistended, normoactive bowel sounds, soft to palpation, non-tender and non-distended Narrative: Mild left-sided CVA tenderness. Bladder / Kidney Exam: bladder normal to palpation Back/Spine normal ROM Extremity normal to inspection, full ROM and no pedal edema Skin no rashes or lesions noted Psych mental status grossly normal Results Lab / Micro Data 06/20/24 11:50 06/20/24 11:50 Labs: Laboratory Results - last 24 hr 06/20/24 11:14: Urine Color Yellow, Urine Clarity Clear, Urine pH 6.0, Ur Specific [place] 1.020, Urine Protein 100 H, Urine Glucose (UA) Normal, Urine Ketones Negative, Urine Occult Blood 25 H, Urine Nitrite Negative, Urine Bilirubin Negative, Urine Urobilinogen Normal, Ur Leukocyte Esterase 25 H, Urine RBC 5-10 SEEN, Urine WBC 10-25 SEEN, Ur Squamous Epith Cells 0-5 SEEN, Ur Transition Epith Cell 0-5 SEEN, Urine Bacteria 2+, Urine Mucus 1+ 06/20/24 11:50: WBC 7.1, RBC 3.76 L, Hgb 8.2 L, Hct 28.2 L, MCV 75.0 L, MCH 21.8 L, MCHC 29.1 L, RDW Std Deviation 54.4 H, RDW Coeff of Domonique 21.6 H, Plt Count 254, MPV 10.9, Immature Gran % (Auto) 1.300 H, Neut % (Auto) 77.1 H, Lymph % (Auto) 9.3 L, [place] % (Auto) 8.6, Eos % (Auto) 3.1, Baso % (Auto) 0.6, Absolute Neuts (auto) 5.5, Absolute Lymphs (auto) 0.66 L, Nucleated RBC % 0, Differential Comment SCANNED, Platelet Estimate ADEQUATE, Polychromasia 1+, Hypochromasia 2+, Anisocytosis 3+, Macrocytosis 1+, Tear Drop Cells 1+, Ovalocytes 2+, Acanthocytes (Spur) 1+, Sodium 142, Potassium 3.3 L, Chloride 110 H, Carbon Dioxide 26.0, Anion Gap 6, BUN 9, Creatinine 0.91, Estim Creat Clear Calc 91.20, Est GFR (MDRD) Af Amer 108, Est GFR (MDRD) Non-Af 89, BUN/Creatinine Ratio 9.8 L , Glucose 148 H, Calcium 8.6 Imaging Radiology Impression Abdomen/Pelvis CT 06/20/24 11:26 IMPRESSION: Mild left hydronephrosis secondary to 6 mm, 2 mm, and 7 mm UVJ calculi. Small left bladder calculus. Small nonobstructing right renal calculi. Anasarca with moderate right pleural effusion, loculated mild left pleural effusion, and loculated mild pericardial effusion; infection not excluded. Mild ascites. Gastroesophageal postoperative change with mild wall thickening of the distal esophagus and mild hiatal hernia. Colonic diverticulosis without acute diverticulitis. 1.9 cm left adrenal nodule. ACR White Paper guidelines (Jaycob et al. JACR 2017; 14(8):7348-5115) suggest the following. If there is no history of malignancy consider a follow-up low dose, non-contrast adrenal CT or chemical-shift adrenal MRI in 12 months. If there is a history of malignancy recommend a low dose, non-emergent, non-contrast adrenal CT or chemical-shift adrenal MRI follow-up study. Electronically Signed: Charu Luke MD at 12:44 EST , Assessment & Plan Assessment/Plan (1) Left nephrolithiasis: (2) Acute UTI: PLAN: Plan Patient is a 64-year-old male who presented [facility] ED on 06/20/2024 with left-sided flank pain. 1. Left-sided nephrolithiasis with mild hydronephrosis and UTI ? Admit under inpatient status to [facility]. Urology consulted. CT abdomen pelvis showed mild left hydronephrosis secondary to 2, 6, and 7 mm UVJ calculi. UA showed 25 occult blood, 25 leukocyte esterase, negative nitrites, 2+ bacteria. N.p.o. at midnight with plan for urology procedure tomorrow. Will treat with IV ceftriaxone for now, urine culture pending. Hemodynamically stable and afebrile with normal WBC count, no concern for sepsis. Pain control with Tylenol, IV Toradol, p.o. oxycodone and IV Dilaudid all as needed; notably is on p.o. PPI twice daily as noted below, no overt contraindication for IV Toradol. 2. History of esophageal cancer s/p surgical resection and chemoradiation therapy now on immunotherapy; anasarca with bilateral pleural effusions and mild pericardial effusion ? Follows with [facility] oncology. See HPI for further details regarding his cancer history. Patient is currently doing well, has been maintained on Keytruda immunotherapy every 6 weeks for the past few years. Is able to eat a regular diet without issue. CT abdomen pelvis on admit did show anasarca with moderate right pleural effusion, mild left pleural effusion, loculated mild pericardial effusion and mild ascites. Patient is stable on room air and denies any shortness of breath with ambulation. No inpatient oncology needs, continue close outpatient follow-up. Continue home p.o. PPI twice daily. 3. History of BPH with obstructive symptoms s/p simple prostatectomy ? Follows with Dr. Tejada. Had simple prostatectomy done on 03/24/2024. Tolerated procedure well, no intraoperative or postoperative complications. Continue home Flomax. 4. Mild hypokalemia ? Potassium 3.3 on admit. Mag and Phos ordered. Follow-up a.m. BMP. Replete potassium as needed. 5. Chronic iron deficiency anemia ? Hemoglobin 8.2, MCV 75 on admit. Patient is at baseline. Follow-up a.m. CBC to ensure stability. Continue home iron supplement. 6. Type 2 diabetes mellitus ? On metformin 1000 mg at night. Last A1c 7.5% in March. Blood glucose 148 on admit. Will treat with sliding scale insulin with meals while inpatient. DVT prophylaxis: SCDs CODE STATUS: Full code, verified Expected disposition: Home, 2 to 3 days Total clinical time spent by myself addressing the patient's medical issues, reviewing all the data, and collaborating with patient's care team: 75 minutes. Charges/Coding Visit Charges Inpatient E&M: 12108 Init Hosp L3
[2024-06-20 14:22] LABS: Magnesium 1.8 mg/dL (1.6-2.6); Phosphorus 3.2 mg/dL (2.5-4.9)
--- NOTE | 2024-06-20 15:01 | PCM.CONS.U ---
Assessment & Plan Assessment/Plan (1) Left nephrolithiasis: HPI Consult Data Date of Consult: 06/20/24 HPI Narrative Reason for Consultation: Left ureteral calculi HPI Narrative: FREYA LIRIANO, is a 64 M who presents To the hospital multiple medical problems has obstructing stones in the distal left ureter patient will be admitted for pain control plan to take this patient the surgery tomorrow for left ureteroscopy and left stent placement. [facility] Medical History Wears glasses Cancer Anemia History of diverticulitis Non-smoker History of stress test History of esophageal cancer Home Medications ?Medication ?Instructions ?Recorded ?Last Taken ?Type metformin 500 mg tablet 1,000 mg PO QPM 03/20/24 06/19/24 History pantoprazole 40 mg tablet,delayed 40 mg PO BID 03/20/24 06/19/24 History release pembrolizumab 25 mg/mL intravenous IV .Q6W IMMUNOTHERAPY 03/20/24 06/09/24 History solution (Keytruda) tamsulosin 0.4 mg capsule 0.4 mg PO DAILY 03/20/24 06/19/24 History ferrous sulfate 325 mg (65 mg 325 mg PO DAILY 06/20/24 06/19/24 History iron) tablet iron dextran 50 mg/mL injection 50 mg IM .1x 06/20/24 06/16/24 History solution (Infed) Allergy/AdvReac Type Severity Reaction Status Date / Time No Known Allergies Allergy Verified 06/20/24 11:07 Surgical History History of laparoscopic cholecystectomy History of tonsillectomy History of esophageal surgery Social History Smoking Status: Never smoker Physical Exam Const alert and oriented x3 General Appearance: cooperative HEENT normocephalic and head/scalp atraumatic Eyes PERRL and EOMs intact bilaterally Neck supple, no JVD and no carotid bruits Resp normal respiratory effort, normal air movement and clear to auscultation bilaterally Cardio regular rate and no murmurs GI normal to inspection, nondistended, normoactive bowel sounds and soft to palpation Extremity normal capillary refill General Extremity: no tenderness to palpation of joints or extremities; Negative for edema Skin no rashes or lesions noted and no wounds General Skin Exam: no breakdown Neuro CN's II-XII intact bilaterally Psych affect normal Appearance: appropriate Lab / Micro Data 06/20/24 11:50 06/20/24 11:50 Labs: Laboratory Results - last 24 hr 06/20/24 11:14: Urine Color Yellow, Urine Clarity Clear, Urine pH 6.0, Ur Specific [place] 1.020, Urine Protein 100 H, Urine Glucose (UA) Normal, Urine Ketones Negative, Urine Occult Blood 25 H, Urine Nitrite Negative, Urine Bilirubin Negative, Urine Urobilinogen Normal, Ur Leukocyte Esterase 25 H, Urine RBC 5-10 SEEN, Urine WBC 10-25 SEEN, Ur Squamous Epith Cells 0-5 SEEN, Ur Transition Epith Cell 0-5 SEEN, Urine Bacteria 2+, Urine Mucus 1+ 06/20/24 11:50: WBC 7.1, RBC 3.76 L, Hgb 8.2 L, Hct 28.2 L, MCV 75.0 L, MCH 21.8 L, MCHC 29.1 L, RDW Std Deviation 54.4 H, RDW Coeff of Domonique 21.6 H, Plt Count 254, MPV 10.9, Immature Gran % (Auto) 1.300 H, Neut % (Auto) 77.1 H, Lymph % (Auto) 9.3 L, [place] % (Auto) 8.6, Eos % (Auto) 3.1, Baso % (Auto) 0.6, Absolute Neuts (auto) 5.5, Absolute Lymphs (auto) 0.66 L, Nucleated RBC % 0, Differential Comment SCANNED, Platelet Estimate ADEQUATE, Polychromasia 1+, Hypochromasia 2+, Anisocytosis 3+, Macrocytosis 1+, Tear Drop Cells 1+, Ovalocytes 2+, Acanthocytes (Spur) 1+, Sodium 142, Potassium 3.3 L, Chloride 110 H, Carbon Dioxide 26.0, Anion Gap 6, BUN 9, Creatinine 0.91, Estim Creat Clear Calc 91.20, Est GFR (MDRD) Af Amer 108, Est GFR (MDRD) Non-Af 89, BUN/Creatinine Ratio 9.8 L, Glucose 148 H, Calcium 8.6, Phosphorus 3.2, Magnesium 1.8 Imaging Radiology Impression Abdomen/Pelvis CT 06/20/24 11:26 IMPRESSION: Mild left hydronephrosis secondary to 6 mm, 2 mm, and 7 mm UVJ calculi. Small left bladder calculus. Small nonobstructing right renal calculi. Anasarca with moderate right pleural effusion, loculated mild left pleural effusion, and loculated mild pericardial effusion; infection not excluded. Mild ascites. Gastroesophageal postoperative change with mild wall thickening of the distal esophagus and mild hiatal hernia. Colonic diverticulosis without acute diverticulitis. 1.9 cm left adrenal nodule. ACR White Paper guidelines (Jaycob et al. JACR 2017; 14(8):9155-9635) suggest the following. If there is no history of malignancy consider a follow-up low dose, non-contrast adrenal CT or chemical-shift adrenal MRI in 12 months. If there is a history of malignancy recommend a low dose, non-emergent, non-contrast adrenal CT or chemical-shift adrenal MRI follow-up study. Electronically Signed: Charu Luke MD at 12:44 EST ,
[2024-06-20] MEDS: Potassium Chloride Oral Tablet 20 MEQ 40 MEQ PO (15:16)
[2024-06-20] MEDS: Tamsulosin HCl 0.4 MG Capsule PO (16:52)
[2024-06-20 16:59] LABS: Bedside Glucose 106 mg/dL (74-106)
[2024-06-20] MEDS: Pantoprazole Sodium 40 MG Tablet PO (21:35)
[2024-06-20 21:54] LABS: Bedside Glucose 122 mg/dL (74-106)
[2024-06-21 04:00] VITALS: BP 145/90; PULSE 83; RESP 16; TEMP 36.7; O2SAT 99
[2024-06-21 06:08] LABS: Hematocrit 29.7 % (40-54); Hemoglobin 8.5 g/dL (13.0-16.5); Mean Corp Hgb Conc 28.6 g/dL (32-36); Mean Corpuscular Hgb 21.9 pg (27.0-32.0); Mean Corpuscular Volume 76.5 fL (80-94); Mean Platelet Vol. 11.5 fl (6.2-12.0); Platelet Count 267 K/mm3 (150-450); RBC Distribution Width CV 22.2 % (11.6-14.6); Red Blood Count 3.88 M/mm3 (4.6-6.2); White Blood Count 5.9 K/mm3 (4.4-11.0)
[2024-06-21 06:49] LABS: Bedside Glucose 102 mg/dL (74-106)
[2024-06-21 07:19] LABS: Scan Indicated on CBC? Y/N YES- FLAGS NOTED
[2024-06-21 07:50] VITALS: O2SAT 95
[2024-06-21 07:54] LABS: Anion Gap 5 (5-15); BUN 9 mg/dL (7-18); BUN/Creat Ratio 9.2 RATIO (10-20); Calcium,Total 8.7 mg/dL (8.5-10.1); Chloride 108 mmol/L (98-107); Creatinine, Serum 0.98 mg/dL (0.70-1.30); EST Glomerular Filtration Rate 83 mL/min (>60); Est Glom Filt Rate - Afr Amer 100 mL/min (>60); Estimated Creatinine Clearance 82.52 ml/min; Glucose 100 mg/dL (74-106); Potassium 3.8 mmol/L (3.5-5.1); Sodium Level 141 mmol/L (136-145)
[2024-06-21 08:11] LABS: POSITIVE MORPHOLOGY YES
[2024-06-21 08:12] VITALS: BP 146/92; PULSE 76; RESP 16; TEMP 36.7; O2SAT 96
[2024-06-21 08:14] VITALS: BP 146/92; PULSE 76; RESP 16; TEMP 36.7; O2SAT 96
--- NOTE | 2024-06-21 09:13 | EKG12_ITS ---
Test Reason : P Blood Pressure : */* mmHG Vent. Rate : 76 BPM Atrial Rate : 76 BPM P-R Int : 170 ms QRS Dur : 118 ms QT Int : 384 ms P-R-T Axes : -25 -52 -16 degrees QTcB Int : 432 ms Normal sinus rhythm Left axis deviation Low voltage QRS Right bundle branch block Abnormal ECG No previous ECGs available Confirmed by MICHAEL VEGA, BRAD ([id number]), publications editor KIRSTIE MCLAIN ([id number]) on 06/21/2024 2:11:42 PM Referred By: IVELISSE Confirmed By: BRAD RODRIGUEZ MD
[2024-06-21] MEDS: Pantoprazole Sodium 40 MG Tablet PO (09:30)
[2024-06-21] MEDS: Ceftriaxone 1 GM/50 ML BAG IV (09:32)
[2024-06-21 10:36] LABS: Hemoglobin A1c 7.2 % (3.8-5.6)
--- NOTE | 2024-06-21 10:50 | CASEMGMT ---
RYAN STEELE Assessment: Face to Face with pt for initial transition planning/care coordination assessment. RN IVETTE introduced self and role at [facility], pt voices understanding and consents to assessment. Pt is A&O x4 and answers all questions appropriately at this time. Pt sitting up in bed in no distress. Care providers, pharmacy, and demographics verified/updated. Admitting Dx: flank pain Strata Score: 1 PCP:Suleman Valderrama Specialists:amarilis Kirby Pharmacy: [facility] Insurance: Self Pay- [place]. Pt states he submits all his claims and may get reimbursed. Prescription Benefit: no LNOK: [facility], Living Arrangements: Pt lives with in a two story home with 3 steps to enter with a rail. 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 Pt denies concerns at home. Transportation: Pt drives self and denies concerns with transportation. DME:denies HHC/SNF: Denies hx of Pt states no concerns with going home at time of dc. Pt states no further concerns/needs. CM to follow. Advised pt to ask CM if any further question/concerns/needs arise, voices understanding. Pt Goal:Home Plan: Home Virginie DAVIS CM
[2024-06-21] MEDS: Ferrous Sulfate 325 MG Tablet PO (11:43)
--- NOTE | 2024-06-21 11:50 | CALC_PTH ---
PATIENT: FREYA LIRIANO LOC: MS3 U#:[id number] AGE/SX: 64/M ROOM: [facility] RE06/20/[address]: Dr. Ace Benito MD : 1960 BED: 1 DIS: 06/21/2024 SPEC #: [id number] RECD: 06/21/24 13:15 STATUS: FELIPE WOOD #: [id number] ROHAN: 06/21/24 11:[address]: Ace Benito DEPT: SURGICAL PATHOLOGY RECD BY: Carolina Vargas ENTERED: 06/21/24 13:15 SP TYPE: Calculi OTHR DR: DO Dr. Ildefonso Olivo MD Dr. Scott Brown, MD Tissues: CALCULI Procedures: Surgery Specimen Level I HEADER OPERATION: Not noted PRE-OP DIAGNOSIS: TISSUE SUBMITTED: Calculi GROSS DIAGNOSIS Fragments of stone, clinically urinary stone (gross only). 06/21/2024 COMMENT The calculus is submitted in its entirety for chemical stone analysis. The results from this study will be reported separately. GROSS DESCRIPTION Received without fixative labeled with the patient's name and designated urinary stone. The specimen consists of two fragments of brownish-black stone measuring 1.4 x 0.5 x 0.3cm and 0.7 and 0.8 cm in greatest dimension. The entire specimen is submitted for stone analysis. 06/21/2024 CPT: 09328
[2024-06-21 11:51] VITALS: BP 136/89; PULSE 76; RESP 16; TEMP 36.6; O2SAT 96
--- NOTE | 2024-06-21 11:53 | CHAPLAIN ---
Type of Pastoral Visit _x__ Initial Visit ___ Follow-up Visit ___ On-call Visit ___ General Patient Visit ___ Spiritual Assessment ___ Family Conference ___ Bereavement ___ Rapid Response ___ Code Blue ___ Other (describe below) Pastoral Care Referral From _x__ Patient ___ Family ___ Nurse ___ Physician ___ Meat Inspector ___ Solution Consultant ___ Other (describe below) Sacrament/Intervention _x__ Active listening ___ Anointing ___ Worship ___ Bereavement ___ Communion ___ Maya exploration ___ ___ Life review ___ Prayer ___ Reconciliation ___ Sacrament of Sick ___ Supportive presence ___ Wedding ___ Other (describe below) Pastoral Comments patient states that he passed some stones already and that he may be discharged soon; pt states that he is fine and declines further support
[2024-06-21 12:03] LABS: Bedside Glucose 127 mg/dL (74-106)
--- NOTE | 2024-06-21 14:00 | DCINST_ITS ---
Discharge Instructions Diet Discharge Diet: Carb Control Diet Activity Discharge Activity: Return to Normal Activity Dressing / Incision Call your doctor if you observe: Fever of 101 or Higher, Shortness of breath, Dizziness, Fainting spells, Swelling in the ankles, Chest pain and Increased palpitations (irregular heartbeat) Follow Up Care Test Results: Test results from this visit will be discussed in further detail at your follow- up appointment, if applicable. Discharge Plan Admission Admit Date/Time: 06/20/24 13:57 Attending Provider: Ace Benito Primary Care Provider: Frank Valderrama Consulting Providers: Ildefonso Tejada; Otoniel Elaine Instructions Patient Instructions: ED Kidney Stone, Passed Discharge Orders/Prescriptions Prescriptions: New cefdinir 300 mg capsule 300 mg PO BID 3 Days Qty: 6 0RF Continued metformin 500 mg tablet 1,000 mg PO QPM tamsulosin 0.4 mg capsule 0.4 mg PO DAILY pantoprazole 40 mg tablet,delayed release (DR/EC) 40 mg PO BID Keytruda 25 mg/mL solution IV .Q6W Patient Comments: UNSURE OF DOSE ferrous sulfate 325 mg (65 mg iron) tablet 325 mg PO DAILY Infed 50 mg/mL solution 50 mg IM .1x Patient Comments: pt states this was to be a one time dose Referrals / Follow Up: Ildefonso Tejada MD [Med Staff - Active Staff] - Within 1 Month Frank Valderrama MD [Primary Care Provider] - Within 1 Week Disposition Disposition (needs filled in before D/C Order can be placed): Home, Self Care
--- NOTE | 2024-06-21 14:56 | PCM.DC.SUM ---
Providers Date of Admission: 06/20/24 Primary Care Physician: Dr. Frank Valderrama MD Consultations 06/20/24 14:59 Consult: Urology Routine Consulting Provider: Ildefonso Tejada Reason for Consult: stone EMERGENT Consult: No MD Notified: Yes Date Notified: 06/20/24 Time Notified: 14:59 Method of Notification: ED Physician Initiated 06/20/24 16:03 Consult: Urology Routine Consulting Provider: Ildefonso Tejada Reason for Consult: left sided kidney stones EMERGENT Consult: No MD Notified: No Date Notified: 06/20/24 Time Notified: 14:01 Reason For Visit: flank pain Diagnosis Discharge Diagnosis (1) Left nephrolithiasis: Status: Acute Code(s): N20.0 - Calculus of kidney Medications at Discharge Home Medications metformin 500 mg tablet 1,000 mg PO QPM 03/20/24 pantoprazole 40 mg tablet,delayed release 40 mg PO BID 03/20/24 pembrolizumab 25 mg/mL intravenous solution (Keytruda) IV .Q6W IMMUNOTHERAPY 03/20/24 tamsulosin 0.4 mg capsule 0.4 mg PO DAILY 03/20/24 ferrous sulfate 325 mg (65 mg iron) tablet 325 mg PO DAILY 06/20/24 iron dextran 50 mg/mL injection solution (Infed) 50 mg IM .1x 06/20/24 cefdinir 300 mg capsule 300 mg PO BID 3 days #6 caps 06/21/24 Hospital Course Operations None Procedures None Summary of Care Provided Minutes Spent on Discharge: 32 Hospital Course: Per HPI: FREYA LIRIANO, is a 64 M who presented to [facility] ED on 06/20/2024 with left-sided flank pain. CT abdomen pelvis showed mild left hydronephrosis secondary to 2, 6, and 7 mm UVJ calculi. Case was discussed with Dr. Tejada in the ED who recommended admission to medicine with plan for procedure tomorrow. Hospitalist was then contacted for admission. I saw the patient at bedside in the ED. Patient follows with Dr. Tejada. He had a simple prostatectomy done by Dr. Tejada here on 03/24/24 for BPH with outlet obstruction. Patient has had a history of small kidney stones that passed on their own, has never required any procedure for them. Patient began to have pain with urination starting 2 days ago and then developed left-sided lower abdominal and flank pain starting this morning. He was given doses of IV Toradol, morphine and Zofran with good relief of symptoms. When I saw him, he was sitting up comfortably in bed, conversing normally, in no acute distress. He denied any issues at this time. Will be admitted for further management. Importantly, patient's history is significant for esophageal cancer and he follows with [facility] for this. I unfortunately was not able to find a good summary of his care through [facility] and did place a request for records. Cancer history was obtained from patient today. Patient states he was diagnosed with cancer back in 2018. States the cancer was right at the GE junction. He completed chemotherapy and radiation initially. He then underwent a surgical procedure to remove that area of the esophagus back in 2020. He has now been on Keytruda every 6 weeks for the past few years. He is aware of his left adrenal nodule that is concerning for cancer metastases and this is being followed by his oncologist. He has had pleural effusions in the past that required thoracentesis. On admission today patient is hemodynamically stable on room air. His CT abdomen pelvis did show anasarca with moderate right pleural effusion, loculated mild left pleural effusion, loculated mild pericardial effusion and mild ascites. Patient denies any shortness of breath with exertion. Denies any abdominal bloating or distention. Notably he can eat a regular diet. States that he eats normal foods but eats only small amounts of food at a time due to his previous surgery. Hospital course: 1. Nephrolithiasis on the left with mild hydronephrosis and possible UTI?64-year-old male present to the hospital with left flank pain and was found to have 3 stones in his left UVJ leading to mild hydronephrosis, he had a 6 mm, 7 mm, 2 mm stone. Urology was consulted and planning on doing a cystoscopy with a stent today however he was able to pass all of his stones and had complete pain relief. White count was normal and he was started on Rocephin for the possibility of a UTI, unclear if he generally has UTI however given the 2+ bacteria in the urine we will continue with cefdinir and have his primary care doctor follow-up with a culture from the hospital as he would like to be discharged today. I did discuss with him possibility of discharge and he expressed understanding the risk benefits going home and would like to go home today. He will need to follow-up with his PCP in 3 to 5 days and with urology within a month. Will continue with Flomax on discharge. 2. History of esophageal cancer status post surgical resection and currently on Keytruda, history of BPH with obstructive symptoms status post simple prostatectomy, chronic iron deficiency anemia, type 2 diabetes are all chronic medical conditions which complicate his care. His home medications were continued where appropriate Physical Exam Narrative General: Alert, Oriented x3, Cooperative, No apparent distress HEENT: Atraumatic, PERRLA, EOMI, Normocephalic Oral: Moist Mucosa Neck: Supple, No JVD Lungs: Clear to auscultation, Normal air movement, No rhonchi, No wheeze, No rales Cardiovascular: Regular rate, Regular Rhythm, Normal S1, Normal S2, No murmurs Abdomen: Soft, Non Tender, Non-Distended, No Hepato-splenomegaly Extremities: No edema, Capillary Refill Less than 3 Seconds Skin: No rashes, No breakdown Musculoskeletal: No Tenderness to Palpation of Joints or Extremities Neurological: No focal neurological deficits, Motor Exam 5/5 strength throughout, Sensory exam intact to light touch and pain Psych/Mental Status: Normal Affect, Appropriate Weight / BMI Weight Weight: 166 lb 11.2 oz Body Mass Index (BMI) 22.6 ABG / Lab / Microbiology Data 06/21/24 05:34 06/21/24 05:34 Laboratory: Laboratory Results - last 24 hr 06/20/24 16:37: POC Glucose 106 06/20/24 21:35: POC Glucose 122 H 06/21/24 05:34: WBC 5.9, RBC 3.88 L, Hgb 8.5 L, Hct 29.7 L, MCV 76.5 L, MCH 21.9 L, MCHC 28.6 L, RDW Std Deviation 55.0 H, RDW Coeff of Domonique 22.2 H, Plt Count 267, MPV 11.5, Sodium 141, Potassium 3.8, Chloride 108 H, Carbon Dioxide 27.0, Anion Gap 5, BUN 9, Creatinine 0.98, Estim Creat Clear Calc 82.52, Est GFR (MDRD) Af Amer 100, Est GFR (MDRD) Non-Af 83, BUN/Creatinine Ratio 9.2 L, Glucose 100, Hemoglobin A1c 7.2 H, Calcium 8.7 06/21/24 06:30: POC Glucose 102 06/21/24 11:41: POC Glucose 127 H D/C Instructions Discharge Diet: Carb Control Diet Call your doctor if you observe: Fever of 101 or Higher, Shortness of breath, Dizziness, Fainting spells, Swelling in the ankles, Chest pain and Increased palpitations (irregular heartbeat) Meaningful Use Info Meaningful Use Meaningful Use Diagnoses (Choose all that apply): None applicable Ischemic Stroke Statin Dosing Therapy Reference: STATIN DOSE THERAPY REFERENCE: * Patients > 75 years receive moderate or high dose statin therapy. * Patients 75 years or YOUNGER should receive HIGH intensity statin dose unless contraindicated. You will be required to document reason for non-treatment if statin daily dose does not meet guidelines. HIGH DOSE STATIN THERAPY DAILY Atorvastatin > than or = to 40 mg Rosuvastatin > than or = to 20 mg Amlodipine + Atorvastatin > than or = to 2.5/40 mg Ezetimibe + Simvastatin 10/80 mg Simvastatin 80mg Discharge Plan Admission Admit Date/Time: 06/20/24 13:57 Attending Provider: Ace Benito Primary Care Provider: Frank Valderrama Consulting Providers: Ildefonso Tejada; Otoniel Elaine Instructions Patient Instructions: ED Kidney Stone, Passed Discharge Orders/Prescriptions Prescriptions: New cefdinir 300 mg capsule 300 mg PO BID 3 Days Qty: 6 0RF Continued metformin 500 mg tablet 1,000 mg PO QPM tamsulosin 0.4 mg capsule 0.4 mg PO DAILY pantoprazole 40 mg tablet,delayed release (DR/EC) 40 mg PO BID Keytruda 25 mg/mL solution IV .Q6W Patient Comments: UNSURE OF DOSE ferrous sulfate 325 mg (65 mg iron) tablet 325 mg PO DAILY Infed 50 mg/mL solution 50 mg IM .1x Patient Comments: pt states this was to be a one time dose Referrals / Follow Up: Ildfeonso Tejada MD [Med Staff - Active Staff] - Within 1 Month Frank Valderrama MD [Primary Care Provider] - Within 1 Week Disposition Disposition (needs filled in before D/C Order can be placed): Home, Self Care Charges/Coding Visit Charges Inpatient E&M: 27704 Disch Hosp >30min
--- NOTE | 2024-06-21 15:54 | PHA.DC.MR.R ---
Pharmacy [place] Med Reconciliation Pharmacy Service has performed discharge medication reconciliation for this patient. Medication education papers prepared, patient not in room when counseling attempted. The patient's discharge medication list was reviewed for discrepancies and discrepancies were resolved. Medications at Discharge Home Medications metformin 500 mg tablet 1,000 mg PO QPM 03/20/24 pantoprazole 40 mg tablet,delayed release 40 mg PO BID 03/20/24 pembrolizumab 25 mg/mL intravenous solution (Keytruda) IV .Q6W IMMUNOTHERAPY 03/20/24 tamsulosin 0.4 mg capsule 0.4 mg PO DAILY 03/20/24 ferrous sulfate 325 mg (65 mg iron) tablet 325 mg PO DAILY 06/20/24 iron dextran 50 mg/mL injection solution (Infed) 50 mg IM .1x 06/20/24 cefdinir 300 mg capsule 300 mg PO BID 3 days #6 caps 06/21/24
[2024-06-27 18:08] LABS: Ca Oxalate, Monohydrate 100 % (.); Size 8x6 mm (.)
== END 2024-06-21 14:43 | disposition home or self-care (01) | DRG 690 ==
LOC: ED 13:52 → MS3 15:19
PROVIDERS: Anesthesiology; Urology; Admitting Provider Hospitalist; Emergency Provider Emergency Medicine; PCP Family Medicine; Visit Provider Family Medicine
DX: N13.6 Pyonephrosis (principal); N13.8 Other obstructive and reflux uropathy; E11.9 Type 2 diabetes mellitus without complications; D50.9 Iron deficiency anemia, unspecified; E87.6 Hypokalemia; N40.1 Benign prostatic hyperplasia with lower urinary tract symptoms; Z92.21 Personal history of antineoplastic chemotherapy; Z92.3 Personal history of irradiation; Z90.79 Acquired absence of other genital organ(s); Z85.01 Personal history of malignant neoplasm of esophagus; Z90.49 Acquired absence of other specified parts of digestive tract
CPT/HCPCS: 36415; 36591; 74176; 80048; 81001; 82360; 82962; 83036; 83735; 84100; 85025; 85027; 87086; 88300; 93005; 94668; 99283; A4216; J2405